=== PATIENT | male | born 1995 | race Caucasian/White ===

== ENCOUNTER 2018-06-18 20:39 | Emergency (ER) | payer SELFPAY ==
[~2018-06-18] VITALS: Ht 177.8 cm; Wt 107.2 kg
[2018-06-18 20:53] VITALS: BP 171/112
[2018-06-18] MEDS ORDERED: rabies immune globulin/PF 150 unit/ml inj IMVAC STA (20:59)
[2018-06-18] MEDS ORDERED: TETanus/Pertussis (Acell)/Diphther VAC/PF (Tdap-Adult) 0.5ml syringe IM ONE (21:00)
[2018-06-18] MEDS ORDERED: rabies vaccine (PCEC)/PF 2.5 unit kit IMVAC ONE (21:00)
--- NOTE | 2018-06-18 21:27 | NUR ---
BIT BY PITBULL RIGHT THIGHL. 2 OPEN AREAS
[2018-06-18] MEDS ORDERED: AMOX-422 PO (21:39)
[2018-06-18] MEDS ORDERED: rabies immune globulin/PF 150 unit/ml inj IMVAC ONE (21:50)
== END 2018-06-18 23:07 | disposition home or self-care (01) ==
LOC: ER 20:40
DX: S71.131A Puncture wound without foreign body, right thigh, initial encounter (principal); S81.831A Puncture wound without foreign body, right lower leg, initial encounter; F12.90 Cannabis use, unspecified, uncomplicated; Z79.2 Long term (current) use of antibiotics; W54.0XXA Bitten by dog, initial encounter; Y93.89 Activity, other specified; Y92.89 Other specified places as the place of occurrence of the external cause; Y99.8 Other external cause status
CPT/HCPCS: 90375; 90471; 90472; 90675; 90715; 96372; 99283